=== PATIENT | female | born 1950 | race Caucasian/White ===

== ENCOUNTER 2022-04-10 17:35 | Emergency (ER) | payer MEDICARE, MEDICAID, SELFPAY ==
[2022-04-10 17:38] VITALS: BP 122/60; PULSE 72; RESP 16; TEMP 36.9; O2SAT 97; BMI 31.8
--- NOTE | 2022-04-10 18:03 | EKG12_ITS ---
Test Reason : CHEST PAIN Blood Pressure : / mmHG Vent. Rate : 066 BPM Atrial Rate : 066 BPM P-R Int : 206 ms QRS Dur : 078 ms QT Int : 420 ms P-R-T Axes : 036 036 040 degrees QTc Int : 440 ms Sinus rhythm with sinus arrhythmia with occasional Premature ventricular complexes Otherwise normal ECG Confirmed by JESSI STACK, SOPHIA ([id number]), medical editor LUCIANO SHANKS ([id number]) on 04/11/2022 10:16:49 AM Referred By: VICKI Confirmed By:SOPHIA BOWEN MD
--- NOTE | 2022-04-10 18:04 | EX.ED.UPPERE ---
HPI History of Present Illness Chief Complaint: Upper Extremity Injury Informant: patient and family (daughters x 2) Narrative Narrative: Patient is a she has been having intermittent episodes of left-sided chest discomfort that occur with light activity over the past 2 or 3 weeks. He does not every day that she gets this. The episodes last for several minutes at the most. They are associated with no other symptoms, however separately, she has been having episodes of discomfort and tingling in her left arm, and involves most of the arm and the entire hand when it occurs, today she had an episode for 5 minutes which was longer than most of them. Sometimes she gets these when she lies down and holds her arm in a certain position, but without the chest discomfort. She states she has a chronic cough, it is productive and it has been worse lately of thick yellow sputum, and at times when she is coughing a lot to get the sputum up, she gets a little short of breath but no other dyspnea. No dyspnea with exertion orthopnea no PND. Chronic leg swelling unchanged. No fevers or chills. She states she never goes to the doctor. However, her last year and so she saw her PCP in January for a checkup and did talk about some of her depression. [facility] Medical History History of ITP Mini stroke Home Medications fluoxetine 10 mg capsule 10 mg PO 04/10/22 [History Last Taken Unknown] trazodone 50 mg tablet 50 mg 04/10/22 [History Last Taken Unknown] Allergy/AdvReac Type Severity Reaction Status Date / Time Penicillins Allergy Hives Verified 04/10/22 17:37 Sulfa (Sulfonamide Allergy Hives Verified 04/10/22 17:37 Antibiotics) [sulfa drugs] Surgical History (Updated 04/10/22 @ 17:43 by Tavares Valdez) S/P appendectomy S/P splenectomy Social History Smoking Status: Current every day smoker tobacco type: cigarettes ROS ROS ED Constitutional Constitutional ED: Denies chills or fever(s) Eyes Eyes: Denies change in vision or diplopia ENT ENT ED: Denies rhinorrhea or sore throat Cardiovascular Cardiovascular: Reports chest pain; Denies palpitations Respiratory/Chest Respiratory/Chest: Reports cough, dyspnea and sputum Gastrointestinal Gastrointestinal: Denies abdominal pain, diarrhea, nausea or vomiting Genitourinary Genitourinary ED: Denies dysuria or hematuria Musculoskeletal Musculoskeletal: Reports extremity pain; Denies back pain or neck pain Integumentary Denies abscess or rash Neurologic Neurologic: Reports paresthesias LUE; Denies headache(s) or weakness Psychiatric Psychiatric: Denies anxiety or suicidal thoughts EXAM Physical Exam Const Vital Signs: 04/10/22 17:38 Temperature 98.5 F Temperature Source Oral Pulse Rate 72 Respiratory Rate 16 Blood Pressure 122/60 H Blood Pressure Mean 80 Pulse Ox 97 Oxygen Delivery Method Room Air Positive well nourished and well developed General Appearance ED: well developed and NAD HEENT Reports moist mucous membranes normocephalic and atraumatic Eyes PERRL and EOMs intact bilaterally Neck full ROM and supple Resp normal respiratory effort and clear to auscultation bilaterally Cardio regular rate, regular rhythm, no murmurs and peripheral pulses 2+ throughout GI non-tender and non-distended Auscultation: normoactive bowel sounds Palpation: soft Back/Spine no CVA tenderness General Back: other FROM Extremity normal to inspection General Extremety ED: Yes edema; Negative for pulses abnormal or tenderness General Extremity: edema bilateral lower extremity Details: moderate; Negative for pulses abnormal Neuro oriented x3, CN's II-XII intact bilaterally and no sensory deficits noted Sensorium / Orientation: awake and alert Motor Exam: strength 5/5 throughout Skin no rashes or lesions noted and no wounds MDM MDM MDM Narrative Medical decision making narrative: Patient has a heart score in the low risk category, 3 see attached. Her EKG shows no repolarization or ischemic abnormalities, troponin is negative, and she has atypical symptoms. She is having worse case scenario symptoms of stable angina but they are very short-lived, couple minutes when she gets the symptoms. The arm discomfort is unrelated to when she has the chest discomfort according to the patient. Given that her work-up is negative here including a 1 view chest x-ray which my interpretation is normal and the radiologist is in agreement, narrow mediastinum no infiltrates, I am comfortable with her following up as an outpatient as is she. Discussed this at length with she and family they are comfortable with that plan and following up. Rhythm Strip Rhythm Strip: Sinus Rhythm Rate: 65 Ectopy: PVC(s) EKG Initial EKG: Attestation: I personally reviewed and interpreted this EKG as follows: Interpretation: No Acute Injury Pattern and Sinus Arrythmia Comments: PVC, otherwise normal EKG. Normal axis. Discharge Plan Triage Chief Complaint: Upper Extremity Injury ED Provider: Benjamin Pennington Dx/Rx/DC Orders Clinical Impression: Intermittent left-sided chest pain Instructions: ED Chest Pain, Uncertain Cause Prescriptions: No Action trazodone 50 mg tablet 50 mg fluoxetine 10 mg capsule 10 mg PO Primary Care Provider: Sayra Patel NP Referrals: Haresh Perez MD [Non-Staff] - (Call for follow-up appointment with your doctor) Disposition Disposition: Home, Self Care Heart Score History: Slightly/Non-Suspicious ECG: Normal Age: >/= 65 years Risk Factors: 1 or 2 Risk Factors Troponin: </= Normal Limit Score: 3
[2022-04-10 18:15] VITALS: O2SAT 97
[2022-04-10] MEDS: Aspirin 81 MG TAB.CHEW 324 MG PO (18:15)
[2022-04-10 18:24] LABS: Absolute Lymphocyte Count 3.09 X10^3/uL (0.83-4.51); Absolute Neutrophil Count 6.3 X10^3/uL (2.0-7.7); Basophil# 0.09 X10^3/uL; Basophil% 0.9 % (0-1); Eosinophil# 0.17 X10^3/uL; Eosinophils% 1.6 % (0-5); Hematocrit 41.3 % (37-47); Hemoglobin 14.2 g/dL (12.0-15.0); Lymphocyte # 3.09 X10^3/ul (0.83-4.51); Lymphocyte % 29.4 % (19-41); Mean Corp Hgb Conc 34.4 g/dL (32-36); Mean Corpuscular Hgb 33.6 pg (27.0-32.0); Mean Corpuscular Volume 97.9 fL (81-99); Mean Platelet Vol. 11.3 fl (6.2-12.0); Monocyte% 8.6 % (0-10); NRBC Flagged by Analyzer 0 % (0-5); Neutrophil # 6.25 X10^3/uL (2.7-7.7); Neutrophil % 59.3 % (47-70); Platelet Count 241 K/mm3 (150-450); RBC Distribution Width CV 13.2 % (11.6-14.6); RBC Distribution Width SD 47.8 fl (35.1-43.9); Red Blood Count 4.22 M/mm3 (4.2-5.4); White Blood Count 10.5 K/mm3 (4.4-11.0)
--- NOTE | 2022-04-10 18:32 | RAD_ITS ---
INDICATION: chest pain EXAMINATION/TECHNIQUE: X-RAY - XR Chest 1 View COMPARISON: None. FINDINGS: The lungs are clear. Tortuous and calcified thoracic aorta. The heart is not enlarged. No pleural effusion or pneumothorax. Degenerative changes of the thoracic spine. RAD/Chest 1 View (Portable) IMPRESSION: No acute radiographic abnormalities. Electronically Signed: Rober Mccullough MD at 19:35 EST ,
[2022-04-10 18:39] LABS: Anion Gap 7 (5-15); BUN 19 mg/dL (7-18); Calcium,Total 9.2 mg/dL (8.5-10.1); Chloride 106 mmol/L (98-107); EST Glomerular Filtration Rate 58 mL/min (>60); Est Glom Filt Rate - Afr Amer 70 mL/min (>60); Estimated Creatinine Clearance 37.81 ml/min; Glucose 92 mg/dL (74-106); Potassium 3.9 mmol/L (3.5-5.1); Sodium Level 141 mmol/L (136-145); Troponin-I HS (w/2H Reflex) 12 pg/mL (3.0-54.0)
[2022-04-10 20:02] VITALS: BP 114/49; PULSE 56; O2SAT 95
[2022-04-10 20:22] LABS: Reflex Troponin-HS? (from REC) Y
== END 2022-04-10 20:10 | disposition home or self-care (01) ==
PROVIDERS: Emergency Provider Emergency Medicine; PCP Nurse Practitioner Family; Visit Provider Emergency Medicine
DX: R07.9 Chest pain, unspecified (principal); I49.3 Ventricular premature depolarization; F17.210 Nicotine dependence, cigarettes, uncomplicated; R05.3 Chronic cough
CPT/HCPCS: 71045; 80048; 84484; 85025; 93005; 99284; A4216

== ENCOUNTER 2024-06-27 12:10 | Emergency (ER) | payer MEDICARE, MEDICAID, SELFPAY ==
[2024-06-27 12:11] VITALS: BP 117/62; PULSE 59; RESP 16; TEMP 36.6; O2SAT 97; BMI 34.7
--- NOTE | 2024-06-27 12:29 | EKG12_ITS ---
Test Reason : Blood Pressure : */* mmHG Vent. Rate : 54 BPM Atrial Rate : 54 BPM P-R Int : 228 ms QRS Dur : 80 ms QT Int : 484 ms P-R-T Axes : 85 48 26 degrees QTcB Int : 458 ms Sinus bradycardia with 1st degree A-V block Otherwise normal ECG Confirmed by Jorge De Souza ([id number]), subeditor LUCIANO SHANKS ([id number]) on 06/28/2024 12:42:08 PM Referred By: Basilio Álvarez Confirmed By: Jorge De Souza
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
[2024-06-27 13:00] LABS: Absolute Lymphocyte Count 2.18 X10^3/uL (0.83-4.51); Absolute Neutrophil Count 5.4 X10^3/uL (2.0-7.7); Basophil% 1.2 % (0-1); Eosinophil# 0.16 X10^3/uL; Eosinophils% 1.9 % (0-5); Hematocrit 41.9 % (37-47); Hemoglobin 14.6 g/dL (12.0-15.0); Lymphocyte # 2.18 X10^3/ul (0.83-4.51); Lymphocyte % 25.7 % (19-41); Mean Corp Hgb Conc 34.8 g/dL (32-36); Mean Corpuscular Hgb 33.8 pg (27.0-32.0); Mean Platelet Vol. 10.9 fl (6.2-12.0); Monocyte# 0.65 X10^3/uL; Monocyte% 7.7 % (0-10); NRBC Flagged by Analyzer 0 % (0-5); Neutrophil # 5.36 X10^3/uL (2.7-7.7); Neutrophil % 63.3 % (47-70); Platelet Count 202 K/mm3 (150-450); RBC Distribution Width CV 12.9 % (11.6-14.6); RBC Distribution Width SD 46.6 fl (35.1-43.9); Red Blood Count 4.32 M/mm3 (4.2-5.4); White Blood Count 8.5 K/mm3 (4.4-11.0)
[2024-06-27 13:10] VITALS: BP 128/79; PULSE 78; RESP 16; TEMP 36.6; O2SAT 99
[2024-06-27 13:27] LABS: Anion Gap 10 (5-15); BUN 17 mg/dL (4-19); BUN/Creat Ratio 19.6 RATIO (10-20); Calcium,Total 8.7 mg/dL (7.6-11.0); Carbon Dioxide 16.1 mmol/L (21.0-32.0); Chloride 109 mmol/L (98-108); Creatinine, Serum 0.87 mg/dL (0.70-1.20); EST Glomerular Filtration Rate 69 (>60); Estimated Creatinine Clearance 51.74 ml/min (50-250); Glucose 117 mg/dL (70-99); Potassium 5.4 mmol/L (3.3-5.1); Sodium Level 135 mmol/L (133-145); Troponin T High Sensitivity 9 ng/L (<=14)
== END 2024-06-27 13:46 | disposition home or self-care (01) ==
PROVIDERS: Emergency Provider Emergency Medicine; PCP Nurse Practitioner Family; Referring Provider Emergency Medicine; Visit Provider Emergency Medicine
DX: R55 Syncope and collapse (principal); R11.0 Nausea; R53.1 Weakness; I44.0 Atrioventricular block, first degree; Z86.73 Personal history of transient ischemic attack (TIA), and cerebral infarction without residual deficits; F17.210 Nicotine dependence, cigarettes, uncomplicated; R00.1 Bradycardia, unspecified; Z86.2 Personal history of diseases of the blood and blood-forming organs and certain disorders involving the immune mechanism
CPT/HCPCS: 80048; 84484; 85025; 93005; 99285